=== PATIENT | male | born 1945 | race Caucasian/White ===

== ENCOUNTER → 2021-12-09 | Day surgery (SDC) | payer OTHER ==
[~2021-12-09] VITALS: Ht 175.2 cm; Wt 99.8 kg
[~2021-12-09] MED LIST: AMLODIPINE BESY10 MG PO; ASPIRIN81 M1 PO; FLOMAX0.4 MG PO; K-TAB10 MEQ PO; LEVOTHYROXINE25 MCG PO; LOVASTATIN40 MG PO; REMERON SOLTAB15 MG PO; TOPAMAX100 M1 PO; VITAMIN D3125 MC1 PO; ZANAFLEX4 M1 PO
[2021-12-09 08:15] VITALS: BP 157/95
[2021-12-09 10:21] VITALS: BP 147/76
[2021-12-09 10:30] VITALS: BP 135/81
[2021-12-09 10:46] VITALS: BP 139/53
== END | disposition home or self-care (01) ==
LOC: SDC 12-04 08:45
PROVIDERS: ATTEND Ophthalmology
DX: H25.812 Combined forms of age-related cataract, left eye (principal); I10 Essential (primary) hypertension; G43.909 Migraine, unspecified, not intractable, without status migrainosus; Z79.82 Long term (current) use of aspirin; Z79.899 Other long term (current) drug therapy; Z20.822 Contact with and (suspected) exposure to COVID-19

== ENCOUNTER → 2022-03-10 | Day surgery (SDC) | payer OTHER, MEDICAID ==
[~2022-03-10] VITALS: Ht 175.2 cm; Wt 99.8 kg
[2022-03-10 09:30] VITALS: BP 150/90
[2022-03-10 10:41] VITALS: BP 159/94
[2022-03-10 10:56] VITALS: BP 140/86
[2022-03-10 11:10] VITALS: BP 148/96
== END | disposition home or self-care (01) ==
LOC: SDC 03-05 14:00
PROVIDERS: ATTEND Ophthalmology
DX: H25.811 Combined forms of age-related cataract, right eye (principal); I10 Essential (primary) hypertension; G43.909 Migraine, unspecified, not intractable, without status migrainosus; Z79.899 Other long term (current) drug therapy; Z98.890 Other specified postprocedural states